=== PATIENT | female | born 1985 | race American Indian/Alaskan Native ===

== ENCOUNTER 2018-01-06 10:18 | Emergency (ER) | payer SELFPAY ==
[2018-01-06 10:43] VITALS: BP 98/63
--- NOTE | 2018-01-06 13:42 | Emergency Department Report ---
ED Extremity Problem HPI - General Chief complaint: Extremity Injury, Upper Stated complaint: BITE ON HAND/NUMB Time Seen by Provider: 01/06/18 13:40 Source: patient Mode of arrival: Ambulatory Limitations: No Limitations - History of Present Illness Initial comments: Patient states she was outside last night and something hit her left hand. She saw a bug fly away is rather large. She was unable able to identify the insect. Patient had intense burning sensation is swelling to the right fourth digit distally. Patient denies any fevers chills nausea vomiting shortness of breath at this time. Patient has no additional rash. - Related Data Previous Rx's Medication Instructions Recorded Last Taken Type Doxycycline [Vibramycin CAP] 100 mg PO Q12HR #10 capsule 01/06/18 Unknown Rx predniSONE [Deltasone] 20 mg PO QDAY #5 tab 01/06/18 Unknown Rx traMADol [Ultram] 50 mg PO Q6HR PRN #12 tablet 01/06/18 Unknown Rx Allergies Allergy/AdvReac Type Severity Reaction Status Date / Time No Known Allergies Allergy Unverified 01/06/18 10:41 ED Review of Systems ROS: Stated complaint: BITE ON HAND/NUMB Other details as noted in HPI Comment: All other systems reviewed and negative ED Past Medical Hx - Past Medical History Hx HIV: Yes - Surgical History Additional Surgical History: c/s - Social History Smoking Status: Current Every Day Smoker Substance Use Type: None - Medications Home Medications: Home Medications Medication Instructions Recorded Confirmed Last Taken Type Doxycycline [Vibramycin CAP] 100 mg PO Q12HR #10 capsule 01/06/18 Unknown Rx predniSONE [Deltasone] 20 mg PO QDAY #5 tab 01/06/18 Unknown Rx traMADol [Ultram] 50 mg PO Q6HR PRN #12 tablet 01/06/18 Unknown Rx ED Physical Exam - General Limitations: No Limitations General appearance: alert, in no apparent distress - Head Head exam: Present: atraumatic, normocephalic - Eye Eye exam: Present: normal appearance - ENT ENT exam: Present: mucous membranes moist - Neck Neck exam: Present: normal inspection - Respiratory Respiratory exam: Present: normal lung sounds bilaterally. Absent: respiratory distress - Cardiovascular Cardiovascular Exam: Present: regular rate, normal rhythm. Absent: systolic murmur, diastolic murmur, rubs, gallop - GI/Abdominal GI/Abdominal exam: Present: soft, normal bowel sounds - Extremities Exam Extremities exam: Present: normal inspection. Absent: other (DIP joint on the dorsum of the right hand.) - Back Exam Back exam: Present: normal inspection - Neurological Exam Neurological exam: Present: alert, oriented X3 - Psychiatric Psychiatric exam: Present: normal affect, normal mood - Skin Skin exam: Present: warm, dry, intact, normal color. Absent: rash ED Course Vital Signs 01/06/18 10:41 Temperature 98.3 F Pulse Rate 82 Respiratory 18 Rate Blood Pressure 98/63 O2 Sat by Pulse 99 Oximetry ED Medical Decision Making - Medical Decision Making Patient likely having a localized reaction secondary to insect sting. Patient be started on nasal symptomatic relief short course antibody extension the patient does not develop an infection of the hand. Critical care attestation.: If time is entered above; I have spent that time in minutes in the direct care of this critically ill patient, excluding procedure time. ED Disposition Clinical Impression: Insect sting Qualifiers: Encounter type: initial encounter Injury intent: undetermined intent Qualified Code(s): T63.484A - Toxic effect of venom of other arthropod, undetermined, initial encounter Disposition: DC-01 TO HOME OR SELFCARE Is pt being admited?: No Does the pt Need Aspirin: No Condition: Stable Instructions: Insect Bite or Sting (ED) Additional Instructions: Please take Benadryl 3 times a day for the next 2-3 days Referrals: PRIMARY CARE, [Primary Care Provider] - 3-5 Days Time of Disposition: 14:04
== END 2018-01-06 14:15 | disposition home or self-care (01) ==
LOC: ED 10:18
DX: T63.484A Toxic effect of venom of other arthropod, undetermined, initial encounter (principal); R22.31 Localized swelling, mass and lump, right upper limb; F17.200 Nicotine dependence, unspecified, uncomplicated; Y92.89 Other specified places as the place of occurrence of the external cause
CPT/HCPCS: 99282

== ENCOUNTER 2019-02-05 15:03 | Emergency (ER) | payer SELFPAY ==
--- NOTE | 2019-02-05 16:21 | Emergency Department Report ---
ED General Adult HPI - General Chief complaint: Headache Stated complaint: DIZZINESS Time Seen by Provider: 02/05/19 16:17 Source: patient Mode of arrival: Ambulatory Limitations: No Limitations - History of Present Illness Initial comments: 33-year-old female with a history of migraines presents complaining of headache. Patient states the headache began today. Patient states he typically uses Goody's or Aleve to alleviate her headache. Patient states she did not take these today. Patient denies any vomiting. Patient complains of body pain. Pat ient denies any focal weakness or slurred speech. Patient complains of photophobia. Patient denies any fever. - Related Data Previous Rx's Medication Instructions Recorded Last Taken Type DOXYCYCLINE Hyclate [Vibramycin 100 mg PO Q12HR #10 capsule 01/06/18 Unknown Rx CAP] predniSONE [Deltasone] 20 mg PO QDAY #5 tab 01/06/18 Unknown Rx traMADol [Ultram] 50 mg PO Q6HR PRN #12 tablet 01/06/18 Unknown Rx traMADol [Ultram] 50 mg PO Q6HR PRN #20 tablet 02/05/19 Unknown Rx Allergies Allergy/AdvReac Type Severity Reaction Status Date / Time No Known Allergies Allergy Unverified 01/06/18 10:41 ED Review of Systems ROS: Stated complaint: DIZZINESS Other details as noted in HPI Constitutional: denies: chills, fever Eyes: denies: eye pain, eye discharge, vision change ENT: denies: ear pain, throat pain Respiratory: denies: cough, shortness of breath, wheezing Cardiovascular: denies: chest pain, palpitations Endocrine: no symptoms reported Gastrointestinal: denies: abdominal pain, nausea, diarrhea Genitourinary: denies: urgency, dysuria, discharge Musculoskeletal: denies: back pain, joint swelling, arthralgia Skin: denies: rash, lesions Neurological: headache Psychiatric: denies: anxiety, depression Hematological/Lymphatic: denies: easy bleeding, easy bruising ED Past Medical Hx - Past Medical History Previous Medical History?: Yes Hx HIV: Yes - Surgical History Past Surgical History?: Yes Additional Surgical History: c/s - Social History Smoking Status: Current Every Day Smoker Substance Use Type: None - Medications Home Medications: Home Medications Medication Instructions Recorded Confirmed Last Taken Type DOXYCYCLINE Hyclate [Vibramycin 100 mg PO Q12HR #10 capsule 01/06/18 Unknown Rx CAP] predniSONE [Deltasone] 20 mg PO QDAY #5 tab 01/06/18 Unknown Rx traMADol [Ultram] 50 mg PO Q6HR PRN #12 tablet 01/06/18 Unknown Rx traMADol [Ultram] 50 mg PO Q6HR PRN #20 tablet 02/05/19 Unknown Rx ED Physical Exam - General Limitations: No Limitations General appearance: alert, other (mildy uncomfortable) - Head Head exam: Present: atraumatic, normocephalic - Eye Eye exam: Present: normal appearance - ENT ENT exam: Present: mucous membranes moist - Neck Neck exam: Present: normal inspection, full ROM. Absent: meningismus - Respiratory Respiratory exam: Present: normal lung sounds bilaterally. Absent: respiratory distress - Cardiovascular Cardiovascular Exam: Present: regular rate, normal rhythm. Absent: systolic murmur, diastolic murmur, rubs, gallop - GI/Abdominal GI/Abdominal exam: Present: soft, normal bowel sounds - Extremities Exam Extremities exam: Present: normal inspection - Back Exam Back exam: Present: normal inspection - Neurological Exam Neurological exam: Present: alert, oriented X3 - Psychiatric Psychiatric exam: Present: normal affect, normal mood - Skin Skin exam: Present: warm, dry, intact, normal color. Absent: rash ED Course Vital Signs 02/05/19 02/05/19 15:49 18:04 Temperature 98.4 F Pulse Rate 70 88 Respiratory 16 16 Rate Blood Pressure 107/69 Blood Pressure 128/96 [Left] O2 Sat by Pulse 94 100 Oximetry ED Medical Decision Making - Medical Decision Making Patient received normal saline, Toradol, Reglan and Benadryl therapy while here in emergency department. Patient's headache is improved patient received Ultram therapy upon discharge. - Differential Diagnosis Migraine headache; Tension Headache; Critical care attestation.: If time is entered above; I have spent that time in minutes in the direct care of this critically ill patient, excluding procedure time. ED Disposition Clinical Impression: Headache Disposition: - TO HOME OR SELFCARE Is pt being admited?: No Does the pt Need Aspirin: No Condition: Stable Instructions: Migraine Headache (ED) Prescriptions: traMADol [Ultram] 50 mg PO Q6HR PRN #20 tablet PRN Reason: Pain Referrals: PRIMARY CARE,MD [Primary Care Provider] - 3-5 Days Time of Disposition: 19:08 Print Language: BHUTANESE
[2019-02-05] MEDS ORDERED: NACL 0.9% 1000 ML 1,000 ML IV ONE (16:28)
[2019-02-05] MEDS ORDERED: BENADRYL IV ONE (16:28)
[2019-02-05] MEDS ORDERED: REGLAN IV ONE (16:28)
[2019-02-05] MEDS ORDERED: TORADOL IV ONE (16:28)
[2019-02-05 18:05] VITALS: BP 128/96
== END 2019-02-05 19:52 | disposition home or self-care (01) ==
LOC: ED 15:03
DX: R51 Headache (principal); H53.149 Visual discomfort, unspecified; F17.200 Nicotine dependence, unspecified, uncomplicated
CPT/HCPCS: 96374; 96375; 99282; J1200; J1885; J2765; J7030